=== PATIENT | female | born 1980 | race Two or more races ===

== ENCOUNTER 2022-12-23 15:50 | Emergency (ER) | payer MEDICAID, OTHER ==
[~2022-12-23] VITALS: Ht 157.5 cm; Wt 76.5 kg
[2022-12-23 17:16] LABS: Urine Bacteria FEW /hpf (None Seen); Urine Blood Negative /uL (Negative); Urine Clarity HAZY (Clear); Urine Color Yellow (Yellow); Urine Protein, UAD Negative (Negative); Urine Specific Gravity 1.008 (1.001-1.035); Urine Urobilinogen Normal (Negative); Urine WBC 1 /hpf (0 - 5)
[2022-12-23] MEDS ORDERED: KETOROLAC TROMETH 30 MG/ML 1ML VIAL IM ONE (18:30)
[2022-12-23 18:34] VITALS: TEMP 97.9
[2022-12-23] MEDS ORDERED: IBUP-1455 PO (19:31)
[2022-12-23 19:35] VITALS: BP 156/94; PULSE 75; RESP 18; O2SAT 98
== END 2022-12-23 19:39 | disposition home or self-care (01) ==
LOC: ER 15:50
DX: R51.9 Headache, unspecified (principal)
CPT/HCPCS: 70450; 81001; 81025; 96372; 99285; J1885